=== PATIENT | female | born 1975 | race Caucasian/White ===

== ENCOUNTER 2017-07-15 08:10 | Outpatient (CLI) | payer OTHER | END 2017-07-15 08:11 | disposition home or self-care (01) | LOC: DI 08:10 | DX: I10 Essential (primary) hypertension (principal) | CPT/HCPCS: 93306 ==

== ENCOUNTER 2020-11-13 09:16 | Outpatient (CLI) | payer OTHER | END 2020-11-13 09:17 | disposition home or self-care (01) | LOC: RT 09:16 | PROVIDERS: ATTEND Family Medicine | DX: R06.00 Dyspnea, unspecified (principal) | CPT/HCPCS: 94010 ==